=== PATIENT | male | born 1990 | race Two or more races ===

== ENCOUNTER 2023-12-27 03:56 | Inpatient (IN) | payer MEDICAID ==
[~2023-12-27] VITALS: Ht 172.7 cm; Wt 188.2 kg
[2023-12-27] VITALS (20 sets, daily range): BP systolic 123–147; BP diastolic 70–89; PULSE 89–112; RESP 20–30; TEMP 97.9–98.3; O2SAT 98
[2023-12-27 04:25] LABS: BASOPHILS % 0.4 % (0.0-2.0); DIFFERENTIAL COMMENT 0; EOSINOPHILS % 1.3 % (0.0-5.0); HEMATOCRIT. 43.8 % (42.0-52.0); HEMOGLOBIN. 13.6 g/dL (14.0-18.0); LYMPHOCYTES % 18.7 % (20.0-50.0); MEAN CORPUSCULAR VOLUME 83.9 fL (80.0-94.0); MEAN PLATELET VOLUME 7.5 fl (7.4-10.4); MONOCYTES % 6.3 % (2.0-8.0); NEUTROPHILS % 73.3 % (40.0-76.0); PLATELET 267 x1000/uL (130-400); RED BLOOD CELL COUNT 5.22 mill/uL (4.7-6.1); RED CELL DISTRIBUTION WIDTH 19.3 % (11.6-14.6); WHITE BLOOD COUNT 9.2 x1000/uL (4.5-11.0)
[2023-12-27 04:43] LABS: CARBON DIOXIDE 37 mEq/L (21-32); CHLORIDE 100 mEq/L (98-107); POTASSIUM 4.4 mEq/L (3.5-5.1); SODIUM 140 mEq/L (136-145)
[2023-12-27 04:44] LABS: CALCIUM 9.6 mg/dL (8.7-10.4)
[2023-12-27 04:48] LABS: CREATININE 1.2 mg/dL (0.6-1.3); GLUCOSE 145 mg/dL (70-105)
[2023-12-27 04:49] LABS: TROPONIN I HIGH SENSITIVITY 15 ng/L (3.0-53); UREA NITROGEN BLOOD 17 mg/dL (9-23)
[2023-12-27 04:50] LABS: ALANINE AMINOTRANSFERASE 21 IU/L (10-49); ALBUMIN 4.1 g/dL (3.2-4.8); ASPARTATE AMINOTRANSFERASE 16 IU/L (<34)
[2023-12-27 04:51] LABS: BILIRUBIN TOTAL 0.6 mg/dL (0.1-1.0); PROTEIN TOTAL 7.6 g/dL (6.0-8.3)
[2023-12-27 05:02] LABS: ETHANOL BLOOD < 10 mg/dL (<10)
[2023-12-27 05:10] LABS: BG BASE EXCESS 7.3 mmol/L (-2.0-2.0); BG CARBOXYHEMOGLOBIN 0.9 % (0.5-1.5); BG DEOXYHEMOGLOBIN 22.6 % (0.0-5.0); BG METHEMOGLOBIN 0.3 % (0.0-1.5); BG OXYGEN SATURATION 77.1 % (92.0-98.5); BG OXYHEMOGLOBIN 76.2 % (94.0-97.0); BG PCO2 70.4 mmHg (35.0-45.0); BG PH 7.326 (7.350-7.450); BG PO2 44.6 mmHg (75.0-100.0); BG SAMPLE SITE RIGHT RADIAL; BG TOTAL HEMOGLOBIN 14.1 g/dL (12.0-18.0); BG VENT MODE ROOM AIR
[2023-12-27] MEDS: ALBUTEROL (0.083%) 2.5MG/3ML NEB HHN STA (05:23)
[2023-12-27] MEDS: IPRATROPIUM BROMIDE (0.02%) 0.5MG/2.5ML NEB HHN STA (05:23)
[2023-12-27] MEDS: PREDNISONE 20MG TABLET PO STA (05:35)
[2023-12-27] MEDS: MAGNESIUM 2 G PREMIX 50 ML IV STA (05:36)
[2023-12-27 06:25] LABS: CHLORIDE 100 mEq/L (98-107); POTASSIUM 4.4 mEq/L (3.5-5.1); SODIUM 140 mEq/L (136-145)
[2023-12-27 06:26] LABS: CALCIUM 9.7 mg/dL (8.7-10.4); CARBON DIOXIDE 36 mEq/L (21-32)
[2023-12-27 06:31] LABS: CREATININE 1.1 mg/dL (0.6-1.3); GLUCOSE 135 mg/dL (70-105); TROPONIN I HIGH SENSITIVITY 14 ng/L (3.0-53); UREA NITROGEN BLOOD 16 mg/dL (9-23)
[2023-12-27 06:33] LABS: ALANINE AMINOTRANSFERASE 20 IU/L (10-49); ALBUMIN 4.1 g/dL (3.2-4.8); ASPARTATE AMINOTRANSFERASE 15 IU/L (<34); BILIRUBIN TOTAL 0.6 mg/dL (0.1-1.0); PROTEIN TOTAL 7.5 g/dL (6.0-8.3)
[2023-12-27] MEDS: ROCURONIUM BROMIDE 10MG/ML VIAL 5ML IV ONE (08:57)
[2023-12-27] MEDS: PROPOFOL 10MG/ML 100ML 100 ML IV SCH (08:57)
[2023-12-27] MEDS: ETOMIDATE 2MG/ML 10ML VIAL IV ONE (08:57)
[2023-12-27] MEDS ORDERED: IPRATROPIUM/ALBUTEROL 0.5-3(2.5)MG/3ML NEB HHN PRN ×2 (09:15→14:15)
[2023-12-27] MEDS: SODIUM CHLORIDE 0.9% 1,000 ML IV SCH (10:00)
[2023-12-27 11:24] LABS: CLARITY URINE CLEAR (CLEAR); COLOR URINE YELLOW (YELLOW); GLUCOSE URINE 3+ (NEGATIVE); KETONES URINE NEGATIVE (NEGATIVE); LEUKOCYTE ESTERASE URINE NEGATIVE (NEGATIVE); NITRITE URINE NEGATIVE (NEGATIVE); OCCULT BLOOD URINE 1+ (NEGATIVE); PH URINE 5.5 (4.5-8.0); PROTEIN URINE 3+ (NEGATIVE); SPECIFIC GRAVITY URINE 1.031 (1.005-1.030); UROBILINOGEN URINE 0.2 E.U./dL (0.2-1.0)
[2023-12-27 11:38] LABS: *AMPHETAMINES SCREEN URINE NEGATIVE (NEGATIVE); *BARBITURATES SCREEN URINE NEGATIVE (NEGATIVE); *BENZODIAZEPINES SCREEN URINE NEGATIVE (NEGATIVE); *COCAINE SCREEN URINE NEGATIVE (NEGATIVE); BACTERIA URINE NONE SEEN; HYALINE CASTS URINE 0-5 /lpf; RBC URINE 0-2 /hpf (0-2); SQUAMOUS EPITHELIAL CELL URINE RARE /lpf (RARE/1+); WBC URINE 0-2 /hpf (0-2); YEAST URINE NONE SEEN
[2023-12-27 11:39] LABS: CANNABINOID URINE SCREEN NEGATIVE (NEGATIVE); ECSTASY MDMA SCREEN URINE NEGATIVE (NEGATIVE); METHADONE URINE SCREEN NEGATIVE (NEGATIVE); OPIATES URINE SCREEN NEGATIVE (NEGATIVE); PHENCYCLIDINE URINE SCREEN NEGATIVE (NEGATIVE)
[2023-12-27 12:04] LABS: BG BASE EXCESS 5.9 mmol/L (-2.0-2.0); BG CARBOXYHEMOGLOBIN 0.7 % (0.5-1.5); BG FRACTION INSPIRED OXYGEN 20; BG HCO3 ACT 36.3 mmol/L (22.0-26.0); BG METHEMOGLOBIN 0.3 % (0.0-1.5); BG OXYGEN SATURATION 91.9 % (92.0-98.5); BG PCO2 83.6 mmHg (35.0-45.0); BG PH 7.256 (7.350-7.450); BG PO2 72.4 mmHg (75.0-100.0); BG SAMPLE SITE RIGHT RADIAL; BG TOTAL HEMOGLOBIN 14.5 g/dL (12.0-18.0); BG VENT MODE VENT - AC
[2023-12-27] MEDS: PROPOFOL 10MG/ML 100ML 100 ML IV PRN (12:53)
[2023-12-27] MEDS: FENTANYL CITRATE/PF 2,500 MCG in SODIUM CHLORIDE 0.9% 200 ML IV PRN (12:54)
[2023-12-27] MEDS: METHYLPREDNISOLONE SOD SUCC 40MG/ML (ACT-O-VIAL) IV SCH (15:10)
[2023-12-27 17:24] LABS: BG BASE EXCESS 5.7 mmol/L (-2.0-2.0); BG CARBOXYHEMOGLOBIN 0.2 % (0.5-1.5); BG DEOXYHEMOGLOBIN 8.7 % (0.0-5.0); BG FRACTION INSPIRED OXYGEN 90; BG HCO3 ACT 32.1 mmol/L (22.0-26.0); BG OXYGEN SATURATION 91.3 % (92.0-98.5); BG OXYHEMOGLOBIN 91.1 % (94.0-97.0); BG PCO2 53.8 mmHg (35.0-45.0); BG PH 7.393 (7.350-7.450); BG PO2 61.3 mmHg (75.0-100.0); BG SAMPLE SITE RIGHT RADIAL; BG TOTAL HEMOGLOBIN 14.2 g/dL (12.0-18.0); BG VENT MODE VENT - AC
[2023-12-27] MEDS: ENOXAPARIN 40MG/0.4ML SYR SUBCUT SCH (17:27)
[2023-12-27] MEDS: IPRATROPIUM/ALBUTEROL 0.5-3(2.5)MG/3ML NEB HHN SCH (21:06)
[2023-12-27] MEDS: FAMOTIDINE 20MG/2ML VIAL IV SCH (21:23)
[2023-12-28] VITALS (37 sets, daily range): BP systolic 128–142; BP diastolic 69–90; PULSE 68–108; RESP 20–28; TEMP 98.4–98.8
[2023-12-28 05:37] LABS: BASOPHILS % 0.1 % (0.0-2.0); HEMATOCRIT. 42.4 % (42.0-52.0); HEMOGLOBIN. 13.2 g/dL (14.0-18.0); LYMPHOCYTES % 9.2 % (20.0-50.0); MEAN CORPUSCULAR HEMOGLOBIN 25.7 pg (28.0-32.0); MEAN CORPUSCULAR VOLUME 82.7 fL (80.0-94.0); MEAN PLATELET VOLUME 7.5 fl (7.4-10.4); MONOCYTES % 3.7 % (2.0-8.0); PLATELET 308 x1000/uL (130-400); RED BLOOD CELL COUNT 5.13 mill/uL (4.7-6.1); RED CELL DISTRIBUTION WIDTH 19.4 % (11.6-14.6); WHITE BLOOD COUNT 8.3 x1000/uL (4.5-11.0)
[2023-12-28 06:10] LABS: CARBON DIOXIDE 31 mEq/L (21-32); CHLORIDE 104 mEq/L (98-107); POTASSIUM 4.4 mEq/L (3.5-5.1); SODIUM 140 mEq/L (136-145)
[2023-12-28 06:11] LABS: CALCIUM 9.9 mg/dL (8.7-10.4)
[2023-12-28 06:16] LABS: CREATININE 0.9 mg/dL (0.6-1.3); GLUCOSE 151 mg/dL (70-105); UREA NITROGEN BLOOD 14 mg/dL (9-23)
[2023-12-28 06:17] LABS: ALANINE AMINOTRANSFERASE 15 IU/L (10-49); ALBUMIN 3.9 g/dL (3.2-4.8)
[2023-12-28 06:18] LABS: ASPARTATE AMINOTRANSFERASE 12 IU/L (<34); BILIRUBIN TOTAL 0.6 mg/dL (0.1-1.0); PROTEIN TOTAL 7.3 g/dL (6.0-8.3)
[2023-12-28] MEDS: LIDOCAINE HCL 1% 10 MG/ML 10ML VIAL ONE (07:53)
[2023-12-28 10:10] LABS: BG BASE EXCESS 6.3 mmol/L (-2.0-2.0); BG CARBOXYHEMOGLOBIN 0.5 % (0.5-1.5); BG DEOXYHEMOGLOBIN 5.5 % (0.0-5.0); BG FRACTION INSPIRED OXYGEN 90; BG HCO3 ACT 32.6 mmol/L (22.0-26.0); BG METHEMOGLOBIN 0.4 % (0.0-1.5); BG OXYGEN SATURATION 94.5 % (92.0-98.5); BG OXYHEMOGLOBIN 93.6 % (94.0-97.0); BG PCO2 53.8 mmHg (35.0-45.0); BG PO2 74.9 mmHg (75.0-100.0); BG SAMPLE SITE RIGHT RADIAL; BG TOTAL HEMOGLOBIN 13.9 g/dL (12.0-18.0); BG VENT MODE VENT - AC
[2023-12-28] MEDS ORDERED: FURO40TA5 MT (10:23)
[2023-12-28] MEDS ORDERED: LOSA50TA41 MT (10:23)
[2023-12-28] MEDS ORDERED: ATOR20TA65 MT (10:23)
[2023-12-28] MEDS ORDERED: SPIR25TA6 MT (10:23)
[2023-12-28] MEDS ORDERED: METF-415 MT (10:23)
[2023-12-28] MEDS: PROPOFOL 10MG/ML 100ML 100 ML IV PRN (11:48)
[2023-12-29] VITALS (45 sets, daily range): BP systolic 122–147; BP diastolic 76–107; PULSE 54–90; RESP 20–25; TEMP 98–98.9
[2023-12-29 09:25] LABS: BG BASE EXCESS 2.5 mmol/L (-2.0-2.0); BG CARBOXYHEMOGLOBIN 0.7 % (0.5-1.5); BG DEOXYHEMOGLOBIN 7.4 % (0.0-5.0); BG FRACTION INSPIRED OXYGEN 100; BG HCO3 ACT 28.8 mmol/L (22.0-26.0); BG METHEMOGLOBIN 0.3 % (0.0-1.5); BG OXYGEN SATURATION 92.5 % (92.0-98.5); BG OXYHEMOGLOBIN 91.6 % (94.0-97.0); BG PCO2 50.9 mmHg (35.0-45.0); BG PO2 70.6 mmHg (75.0-100.0); BG SAMPLE SITE RIGHT RADIAL; BG TOTAL HEMOGLOBIN 13.9 g/dL (12.0-18.0); BG TOTAL RESPIRATORY RATE 22 b/min; BG VENT MODE VENT - AC
[2023-12-29] MEDS ORDERED: PANTOPRAZOLE SODIUM 40 MG/VIAL IV SCH (10:15)
[2023-12-29] MEDS: PROPOFOL 10MG/ML 100ML 100 ML IV PRN (11:55)
[2023-12-29 17:19] LABS: BG BASE EXCESS 3.8 mmol/L (-2.0-2.0); BG CARBOXYHEMOGLOBIN 0.3 % (0.5-1.5); BG FRACTION INSPIRED OXYGEN 100; BG HCO3 ACT 29.4 mmol/L (22.0-26.0); BG METHEMOGLOBIN 0.2 % (0.0-1.5); BG OXYHEMOGLOBIN 90.5 % (94.0-97.0); BG PH 7.405 (7.350-7.450); BG PO2 64.2 mmHg (75.0-100.0); BG SAMPLE SITE RIGHT RADIAL; BG TOTAL HEMOGLOBIN 14.1 g/dL (12.0-18.0); BG VENT MODE VENT - AC
[2023-12-30] VITALS (89 sets, daily range): BP systolic 102–169; BP diastolic 27–142; PULSE 51–99; RESP 16–31; TEMP 98.2–99.2
[2023-12-30 06:14] LABS: CARBON DIOXIDE 27 mEq/L (21-32); CHLORIDE 105 mEq/L (98-107); POTASSIUM 4.2 mEq/L (3.5-5.1); SODIUM 141 mEq/L (136-145)
[2023-12-30 06:15] LABS: CALCIUM 9.7 mg/dL (8.7-10.4)
[2023-12-30 06:19] LABS: BASOPHILS % 0.1 % (0.0-2.0); DIFFERENTIAL COMMENT 0; HEMATOCRIT. 43.3 % (42.0-52.0); HEMOGLOBIN. 13.4 g/dL (14.0-18.0); LYMPHOCYTES % 9.9 % (20.0-50.0); MEAN CORPUSCULAR HEMOGLOBIN 25.7 pg (28.0-32.0); MEAN CORPUSCULAR VOLUME 82.9 fL (80.0-94.0); MEAN PLATELET VOLUME 7.6 fl (7.4-10.4); MONOCYTES % 9.3 % (2.0-8.0); NEUTROPHILS % 80.7 % (40.0-76.0); PLATELET 304 x1000/uL (130-400); RED BLOOD CELL COUNT 5.22 mill/uL (4.7-6.1); RED CELL DISTRIBUTION WIDTH 19.6 % (11.6-14.6); WHITE BLOOD COUNT 8.7 x1000/uL (4.5-11.0)
[2023-12-30 06:20] LABS: CREATININE 0.9 mg/dL (0.6-1.3); GLUCOSE 138 mg/dL (70-105); UREA NITROGEN BLOOD 20 mg/dL (9-23)
[2023-12-30 08:13] LABS: BG CARBOXYHEMOGLOBIN 0.1 % (0.5-1.5); BG DEOXYHEMOGLOBIN 11.7 % (0.0-5.0); BG FRACTION INSPIRED OXYGEN 100; BG HCO3 ACT 27.8 mmol/L (22.0-26.0); BG METHEMOGLOBIN 0.2 % (0.0-1.5); BG OXYGEN SATURATION 88.3 % (92.0-98.5); BG PCO2 47.5 mmHg (35.0-45.0); BG PH 7.385 (7.350-7.450); BG PO2 58.6 mmHg (75.0-100.0); BG SAMPLE SITE RIGHT RADIAL; BG TOTAL HEMOGLOBIN 14.9 g/dL (12.0-18.0); BG TOTAL RESPIRATORY RATE 31 b/min; BG VENT MODE VENT - AC
[2023-12-30] MEDS ORDERED: DEXTROSE 50% WATER 50ML SYRINGE IV PRN (11:15)
[2023-12-30] MEDS: BLOOD SUGAR DIAGNOSTIC STRIP TEST SCH (12:01)
[2023-12-30] MEDS: INSULIN LISPRO 100 UNITS/ML SUBCUT SCH ×2 (13:00→21:43)
[2023-12-30] MEDS: CLONIDINE 0.1MG TABLET PO PRN (13:57)
[2023-12-30] MEDS: PROPOFOL 10MG/ML 100ML 100 ML IV PRN (19:26)
[2023-12-30] MEDS: METHYLPREDNISOLONE SOD SUCC 125MG/2ML (ACT-O-VIAL) IV SCH (21:43)
[2023-12-31] VITALS (90 sets, daily range): BP systolic 54–165; BP diastolic 23–139; PULSE 57–125; RESP 10–30; TEMP 97.5–99.1
[2023-12-31 09:06] LABS: BG BASE EXCESS 2.7 mmol/L (-2.0-2.0); BG CARBOXYHEMOGLOBIN 0.1 % (0.5-1.5); BG DEOXYHEMOGLOBIN 5.5 % (0.0-5.0); BG FRACTION INSPIRED OXYGEN 100; BG HCO3 ACT 27.7 mmol/L (22.0-26.0); BG METHEMOGLOBIN 0.3 % (0.0-1.5); BG OXYGEN SATURATION 94.5 % (92.0-98.5); BG OXYHEMOGLOBIN 94.1 % (94.0-97.0); BG PCO2 43.9 mmHg (35.0-45.0); BG PH 7.418 (7.350-7.450); BG PO2 73.9 mmHg (75.0-100.0); BG SAMPLE SITE RIGHT RADIAL; BG TOTAL HEMOGLOBIN 13.9 g/dL (12.0-18.0); BG VENT MODE VENT - AC
[2023-12-31] MEDS: KETOROLAC 30MG/ML VIAL IV PRN (12:43)
[2023-12-31] MEDS: PIPERACILLIN/TAZO 3.375G/50ML 50 ML IV SCH (12:43)
[2023-12-31] MEDS: FUROSEMIDE 40MG/4ML VIAL IVP NR (12:44)
[2023-12-31] MEDS: DIPHENHYDRAMINE 50MG/ML VIAL IV PRN (22:23)
[2024-01-01] VITALS (83 sets, daily range): BP systolic 90–145; BP diastolic 50–110; PULSE 18–106; RESP 18–36; TEMP 97.5–100.1
[2024-01-01] MEDS: ACETAMINOPHEN 325MG TABLET PO PRN (06:18)
[2024-01-01 06:36] LABS: HEMATOCRIT. 40.5 % (42.0-52.0); HEMOGLOBIN. 12.9 g/dL (14.0-18.0); MEAN CORPUSCULAR HEMOGLOBIN 26.1 pg (28.0-32.0); MEAN CORPUSCULAR HGB CONC 31.9 g/dL (31.0-37.0); MEAN PLATELET VOLUME 7.2 fl (7.4-10.4); PLATELET 256 x1000/uL (130-400); RED BLOOD CELL COUNT 4.94 mill/uL (4.7-6.1); RED CELL DISTRIBUTION WIDTH 19.2 % (11.6-14.6); WHITE BLOOD COUNT 14.7 x1000/uL (4.5-11.0)
[2024-01-01 06:37] LABS: CALCIUM 9.4 mg/dL (8.7-10.4); CARBON DIOXIDE 29 mEq/L (21-32); CHLORIDE 107 mEq/L (98-107); DIFFERENTIAL COMMENT 1; POTASSIUM 3.7 mEq/L (3.5-5.1); SODIUM 142 mEq/L (136-145)
[2024-01-01 06:42] LABS: GLUCOSE 143 mg/dL (70-105)
[2024-01-01 06:43] LABS: UREA NITROGEN BLOOD 23 mg/dL (9-23)
[2024-01-01 07:55] LABS: BG BASE EXCESS 4.1 mmol/L (-2.0-2.0); BG CARBOXYHEMOGLOBIN 0.5 % (0.5-1.5); BG DEOXYHEMOGLOBIN 5.4 % (0.0-5.0); BG FRACTION INSPIRED OXYGEN 90; BG HCO3 ACT 29.1 mmol/L (22.0-26.0); BG METHEMOGLOBIN 0.3 % (0.0-1.5); BG OXYGEN SATURATION 94.6 % (92.0-98.5); BG OXYHEMOGLOBIN 93.8 % (94.0-97.0); BG PH 7.429 (7.350-7.450); BG PO2 75.1 mmHg (75.0-100.0); BG SAMPLE SITE RIGHT RADIAL; BG TOTAL HEMOGLOBIN 13.8 g/dL (12.0-18.0); BG VENT MODE VENT - AC
[2024-01-01] MEDS: FUROSEMIDE 40MG/4ML VIAL IVP SCH (08:56)
[2024-01-01 09:41] LABS: ANISOCYTOSIS 2+; PLATELET ESTIMATE NORMAL
[2024-01-01 11:28] LABS: BG BASE EXCESS 4.4 mmol/L (-2.0-2.0); BG CARBOXYHEMOGLOBIN 0.4 % (0.5-1.5); BG DEOXYHEMOGLOBIN 9.5 % (0.0-5.0); BG FRACTION INSPIRED OXYGEN 90; BG METHEMOGLOBIN 0.3 % (0.0-1.5); BG OXYGEN SATURATION 90.4 % (92.0-98.5); BG OXYHEMOGLOBIN 89.8 % (94.0-97.0); BG PCO2 48.6 mmHg (35.0-45.0); BG PH 7.409 (7.350-7.450); BG PO2 58.6 mmHg (75.0-100.0); BG SAMPLE SITE LEFT RADIAL; BG TOTAL HEMOGLOBIN 14.5 g/dL (12.0-18.0); BG VENT MODE VENT - AC
[2024-01-01] MEDS ORDERED: FENTANYL 2500MCG/250ML PMX 250 ML IV ONE (11:30)
[2024-01-01] MEDS ORDERED: FENTANYL CITRATE 2,500 MCG in SODIUM CHLORIDE 0.9% 200 ML IV PRN (11:45)
[2024-01-01] MEDS: FENTANYL 2500MCG/250ML PMX 250 ML IV PRN (11:50)
[2024-01-01 17:41] LABS: BG BASE EXCESS 5.4 mmol/L (-2.0-2.0); BG CARBOXYHEMOGLOBIN 0.2 % (0.5-1.5); BG FRACTION INSPIRED OXYGEN 90; BG HCO3 ACT 30.2 mmol/L (22.0-26.0); BG METHEMOGLOBIN 0.2 % (0.0-1.5); BG OXYHEMOGLOBIN 94.6 % (94.0-97.0); BG PCO2 44.9 mmHg (35.0-45.0); BG PH 7.446 (7.350-7.450); BG PO2 75.6 mmHg (75.0-100.0); BG SAMPLE SITE RIGHT RADIAL; BG TOTAL HEMOGLOBIN 13.9 g/dL (12.0-18.0); BG VENT MODE VENT - AC
[2024-01-01] MEDS ORDERED: IPRATROPIUM/ALBUTEROL 0.5-3(2.5)MG/3ML NEB HHN PRN (18:45)
[2024-01-01] MEDS: QUETIAPINE FUMARATE 25MG TABLET PO SCH (19:14)
[2024-01-01] MEDS: AZITHROMYCIN 500MG/250ML 250 ML IV SCH (20:00)
[2024-01-01] MEDS: IPRATROPIUM/ALBUTEROL 0.5-3(2.5)MG/3ML NEB HHN SCH (20:33)
[2024-01-01] MEDS: METHYLPREDNISOLONE SOD SUCC 40MG/ML (ACT-O-VIAL) IV SCH (22:35)
[2024-01-02] VITALS (65 sets, daily range): BP systolic 100–164; BP diastolic 70–146; PULSE 46–96; RESP 17–27; TEMP 98.2–99.1
[2024-01-02 06:26] LABS: DIFFERENTIAL COMMENT 1; HEMATOCRIT. 40.7 % (42.0-52.0); HEMOGLOBIN. 12.6 g/dL (14.0-18.0); MEAN CORPUSCULAR HEMOGLOBIN 25.5 pg (28.0-32.0); MEAN CORPUSCULAR VOLUME 82.1 fL (80.0-94.0); MEAN PLATELET VOLUME 7.4 fl (7.4-10.4); PLATELET 299 x1000/uL (130-400); RED BLOOD CELL COUNT 4.96 mill/uL (4.7-6.1); RED CELL DISTRIBUTION WIDTH 19.5 % (11.6-14.6); WHITE BLOOD COUNT 12.4 x1000/uL (4.5-11.0)
[2024-01-02 06:40] LABS: CHLORIDE 108 mEq/L (98-107); POTASSIUM 3.9 mEq/L (3.5-5.1); SODIUM 143 mEq/L (136-145)
[2024-01-02 06:41] LABS: CARBON DIOXIDE 28 mEq/L (21-32)
[2024-01-02 06:46] LABS: CREATININE 0.8 mg/dL (0.6-1.3); GLUCOSE 167 mg/dL (70-105); UREA NITROGEN BLOOD 23 mg/dL (9-23)
[2024-01-02 06:56] LABS: CALCIUM 9.6 mg/dL (8.7-10.4)
[2024-01-02 08:29] LABS: BG CARBOXYHEMOGLOBIN 0.5 % (0.5-1.5); BG DEOXYHEMOGLOBIN 6.8 % (0.0-5.0); BG FRACTION INSPIRED OXYGEN 80; BG HCO3 ACT 29.6 mmol/L (22.0-26.0); BG METHEMOGLOBIN 0.2 % (0.0-1.5); BG OXYGEN SATURATION 93.2 % (92.0-98.5); BG OXYHEMOGLOBIN 92.5 % (94.0-97.0); BG PCO2 43.4 mmHg (35.0-45.0); BG PH 7.451 (7.350-7.450); BG PO2 66.8 mmHg (75.0-100.0); BG SAMPLE SITE RIGHT RADIAL; BG TOTAL HEMOGLOBIN 13.2 g/dL (12.0-18.0); BG VENT MODE VENT - AC
[2024-01-02 12:02] LABS: PLATELET ESTIMATE NORMAL
[2024-01-02 12:03] LABS: ANISOCYTOSIS 1+
[2024-01-02 14:23] LABS: BG BASE EXCESS 6.7 mmol/L (-2.0-2.0); BG CARBOXYHEMOGLOBIN 0.3 % (0.5-1.5); BG DEOXYHEMOGLOBIN 8.7 % (0.0-5.0); BG FRACTION INSPIRED OXYGEN 70; BG METHEMOGLOBIN 0.3 % (0.0-1.5); BG OXYGEN SATURATION 91.2 % (92.0-98.5); BG OXYHEMOGLOBIN 90.7 % (94.0-97.0); BG PCO2 43.2 mmHg (35.0-45.0); BG PH 7.474 (7.350-7.450); BG PO2 61.3 mmHg (75.0-100.0); BG SAMPLE SITE RIGHT RADIAL; BG TOTAL HEMOGLOBIN 13.7 g/dL (12.0-18.0); BG VENT MODE VENT - AC
[2024-01-03] VITALS (64 sets, daily range): BP systolic 123–180; BP diastolic 55–152; PULSE 37–92; RESP 20–27; TEMP 98–98.2
[2024-01-03 05:38] LABS: HEMATOCRIT 37.5 % (42.0-52.0); HEMOGLOBIN 11.6 g/dL (14.0-18.0); MEAN CORPUSCULAR HEMOGLOBIN 25.4 pg (28.0-32.0); MEAN CORPUSCULAR HGB CONC 30.9 g/dL (31.0-37.0); PLATELET 315 x1000/uL (130-400); RED BLOOD CELL COUNT 4.57 mill/uL (4.7-6.1); RED CELL DISTRIBUTION WIDTH 19.5 % (11.6-14.6); WHITE BLOOD COUNT 10.5 x1000/uL (4.5-11.0)
[2024-01-03 05:49] LABS: CHLORIDE 111 mEq/L (98-107); POTASSIUM 3.5 mEq/L (3.5-5.1); SODIUM 146 mEq/L (136-145)
[2024-01-03 05:50] LABS: CALCIUM 8.4 mg/dL (8.7-10.4); CARBON DIOXIDE 28 mEq/L (21-32)
[2024-01-03 05:55] LABS: CREATININE 0.9 mg/dL (0.6-1.3); GLUCOSE 180 mg/dL (70-105); UREA NITROGEN BLOOD 30 mg/dL (9-23)
[2024-01-03 05:56] LABS: ALANINE AMINOTRANSFERASE 35 IU/L (10-49); ASPARTATE AMINOTRANSFERASE 16 IU/L (<34)
[2024-01-03 05:57] LABS: ALBUMIN 3.2 g/dL (3.2-4.8); BILIRUBIN TOTAL 0.8 mg/dL (0.1-1.0)
[2024-01-03] MEDS: BLOOD SUGAR DIAGNOSTIC STRIP TEST SCH (12:00)
[2024-01-03] MEDS: INSULIN LISPRO 100 UNITS/ML SUBCUT SCH (12:12)
[2024-01-03] MEDS: ACETAMINOPHEN 650MG/20.3ML UDC PO PRN (15:11)
[2024-01-03] MEDS: METHYLPREDNISOLONE SOD SUCC 125MG/2ML (ACT-O-VIAL) IV SCH (15:11)
[2024-01-04] VITALS (79 sets, daily range): BP systolic 121–179; BP diastolic 75–123; PULSE 41–85; RESP 16–29; TEMP 97.8–98.5
[2024-01-04 05:58] LABS: CARBON DIOXIDE 27 mEq/L (21-32); CHLORIDE 107 mEq/L (98-107); POTASSIUM 3.8 mEq/L (3.5-5.1); SODIUM 144 mEq/L (136-145)
[2024-01-04 06:02] LABS: HEMATOCRIT. 44.9 % (42.0-52.0); HEMOGLOBIN. 14.1 g/dL (14.0-18.0); MEAN CORPUSCULAR HEMOGLOBIN 25.7 pg (28.0-32.0); MEAN CORPUSCULAR HGB CONC 31.4 g/dL (31.0-37.0); MEAN CORPUSCULAR VOLUME 81.9 fL (80.0-94.0); MEAN PLATELET VOLUME 7.7 fl (7.4-10.4); PLATELET 359 x1000/uL (130-400); RED BLOOD CELL COUNT 5.48 mill/uL (4.7-6.1); RED CELL DISTRIBUTION WIDTH 19.5 % (11.6-14.6); WHITE BLOOD COUNT 10.7 x1000/uL (4.5-11.0)
[2024-01-04 06:04] LABS: GLUCOSE 166 mg/dL (70-105); UREA NITROGEN BLOOD 30 mg/dL (9-23)
[2024-01-04 06:54] LABS: DIFFERENTIAL COMMENT 1
[2024-01-04 08:35] LABS: BG BASE EXCESS 2.1 mmol/L (-2.0-2.0); BG CARBOXYHEMOGLOBIN 0.5 % (0.5-1.5); BG DEOXYHEMOGLOBIN 5.9 % (0.0-5.0); BG FRACTION INSPIRED OXYGEN 55; BG HCO3 ACT 25.9 mmol/L (22.0-26.0); BG METHEMOGLOBIN 0.3 % (0.0-1.5); BG OXYGEN SATURATION 94.1 % (92.0-98.5); BG OXYHEMOGLOBIN 93.3 % (94.0-97.0); BG PCO2 37.8 mmHg (35.0-45.0); BG PH 7.454 (7.350-7.450); BG PO2 70.6 mmHg (75.0-100.0); BG SAMPLE SITE LEFT RADIAL; BG TOTAL HEMOGLOBIN 14.2 g/dL (12.0-18.0)
[2024-01-04 10:23] LABS: ANISOCYTOSIS 1+; MICROCYTOSIS 1+; PLATELET ESTIMATE NORMAL
[2024-01-05] VITALS (62 sets, daily range): BP systolic 133–160; BP diastolic 77–140; PULSE 41–84; RESP 11–32; TEMP 97.2–99; O2SAT 98–100
[2024-01-05 06:15] LABS: HEMATOCRIT. 42.5 % (42.0-52.0); HEMOGLOBIN. 13.6 g/dL (14.0-18.0); LYMPHOCYTES % 8.2 % (20.0-50.0); MEAN CORPUSCULAR HEMOGLOBIN 25.6 pg (28.0-32.0); MEAN CORPUSCULAR VOLUME 80.1 fL (80.0-94.0); MEAN PLATELET VOLUME 7.9 fl (7.4-10.4); MONOCYTES % 9.1 % (2.0-8.0); NEUTROPHILS % 82.7 % (40.0-76.0); PLATELET 340 x1000/uL (130-400); RED BLOOD CELL COUNT 5.31 mill/uL (4.7-6.1); RED CELL DISTRIBUTION WIDTH 19.2 % (11.6-14.6); WHITE BLOOD COUNT 8.6 x1000/uL (4.5-11.0)
[2024-01-05 06:22] LABS: CHLORIDE 106 mEq/L (98-107); SODIUM 142 mEq/L (136-145)
[2024-01-05 06:23] LABS: CARBON DIOXIDE 27 mEq/L (21-32)
[2024-01-05 06:28] LABS: CREATININE 0.6 mg/dL (0.6-1.3); GLUCOSE 221 mg/dL (70-105)
[2024-01-05 06:29] LABS: UREA NITROGEN BLOOD 23 mg/dL (9-23)
[2024-01-05 07:14] LABS: CALCIUM 9.4 mg/dL (8.7-10.4)
[2024-01-05 10:04] LABS: BG BASE EXCESS 5.8 mmol/L (-2.0-2.0); BG CARBOXYHEMOGLOBIN 0.9 % (0.5-1.5); BG DEOXYHEMOGLOBIN 5.7 % (0.0-5.0); BG FRACTION INSPIRED OXYGEN 50; BG HCO3 ACT 29.5 mmol/L (22.0-26.0); BG METHEMOGLOBIN 0.3 % (0.0-1.5); BG OXYGEN SATURATION 94.2 % (92.0-98.5); BG OXYHEMOGLOBIN 93.1 % (94.0-97.0); BG PCO2 39.7 mmHg (35.0-45.0); BG PH 7.489 (7.350-7.450); BG PO2 69.9 mmHg (75.0-100.0); BG SAMPLE SITE RIGHT RADIAL; BG TOTAL HEMOGLOBIN 14.1 g/dL (12.0-18.0); BG VENT MODE VENT - AC
[2024-01-05 15:55] LABS: BG BASE EXCESS 4.3 mmol/L (-2.0-2.0); BG CARBOXYHEMOGLOBIN 0.2 % (0.5-1.5); BG DEOXYHEMOGLOBIN 5.5 % (0.0-5.0); BG FRACTION INSPIRED OXYGEN 50; BG HCO3 ACT 27.7 mmol/L (22.0-26.0); BG METHEMOGLOBIN 0.2 % (0.0-1.5); BG OXYGEN SATURATION 94.5 % (92.0-98.5); BG OXYHEMOGLOBIN 94.1 % (94.0-97.0); BG PCO2 37.4 mmHg (35.0-45.0); BG PH 7.487 (7.350-7.450); BG SAMPLE SITE RIGHT RADIAL; BG TOTAL HEMOGLOBIN 14.7 g/dL (12.0-18.0); BG VENT MODE VENT - CPAP
[2024-01-05] MEDS ORDERED: RACEPINEPHRINE 2.25% 0.5ML NEB VIAL HHN PRN (16:15)
[2024-01-05] MEDS: METHYLPREDNISOLONE SOD SUCC 125MG/2ML (ACT-O-VIAL) IV SCH (21:33)
[2024-01-06] VITALS (70 sets, daily range): BP systolic 122–155; BP diastolic 73–116; PULSE 42–86; RESP 16–31; TEMP 97.7–98.9; O2SAT 94–97
[2024-01-06] MEDS: ONDANSETRON HCL 4MG/2ML INJ IV PRN (04:49)
[2024-01-06 09:27] LABS: BG BASE EXCESS 2.6 mmol/L (-2.0-2.0); BG CARBOXYHEMOGLOBIN 0.2 % (0.5-1.5); BG DEOXYHEMOGLOBIN 3.8 % (0.0-5.0); BG FRACTION INSPIRED OXYGEN 40; BG HCO3 ACT 28.2 mmol/L (22.0-26.0); BG METHEMOGLOBIN 0.3 % (0.0-1.5); BG OXYGEN SATURATION 96.2 % (92.0-98.5); BG OXYHEMOGLOBIN 95.7 % (94.0-97.0); BG PCO2 47.2 mmHg (35.0-45.0); BG PH 7.394 (7.350-7.450); BG PO2 90.3 mmHg (75.0-100.0); BG SAMPLE SITE RIGHT RADIAL; BG VENT MODE COOL AEROSOL
[2024-01-07] VITALS: BP 129/83; PULSE 76; RESP 20; TEMP 97.7
[2024-01-07 04:00] VITALS: BP 124/80; PULSE 67; RESP 22; TEMP 98.4
[2024-01-07 07:04] LABS: CARBON DIOXIDE 28 mEq/L (21-32); CHLORIDE 101 mEq/L (98-107); POTASSIUM 4.4 mEq/L (3.5-5.1); SODIUM 138 mEq/L (136-145)
[2024-01-07 07:05] LABS: CALCIUM 9.6 mg/dL (8.7-10.4)
[2024-01-07 07:10] LABS: BASOPHILS % 0.1 % (0.0-2.0); CREATININE 0.9 mg/dL (0.6-1.3); GLUCOSE 153 mg/dL (70-105); HEMATOCRIT. 42.9 % (42.0-52.0); HEMOGLOBIN. 13.4 g/dL (14.0-18.0); LYMPHOCYTES % 8.7 % (20.0-50.0); MEAN CORPUSCULAR HEMOGLOBIN 25.2 pg (28.0-32.0); MEAN CORPUSCULAR HGB CONC 31.3 g/dL (31.0-37.0); MEAN CORPUSCULAR VOLUME 80.5 fL (80.0-94.0); MEAN PLATELET VOLUME 7.6 fl (7.4-10.4); MONOCYTES % 6.8 % (2.0-8.0); NEUTROPHILS % 84.4 % (40.0-76.0); PLATELET 311 x1000/uL (130-400); RED BLOOD CELL COUNT 5.32 mill/uL (4.7-6.1); RED CELL DISTRIBUTION WIDTH 18.8 % (11.6-14.6); UREA NITROGEN BLOOD 21 mg/dL (9-23); WHITE BLOOD COUNT 11.7 x1000/uL (4.5-11.0)
[2024-01-07 08:00] VITALS: BP 158/82; PULSE 64; RESP 20; TEMP 98.1
[2024-01-07 12:00] VITALS: BP 120/70; PULSE 74; RESP 20; TEMP 97.9
[2024-01-07 16:00] VITALS: BP 114/78; PULSE 66; RESP 20; TEMP 97.9
[2024-01-07 20:00] VITALS: BP 116/67; PULSE 60; RESP 20; TEMP 97.2
[2024-01-07] MEDS: METHYLPREDNISOLONE SOD SUCC 40MG/ML (ACT-O-VIAL) IV SCH (21:43)
[2024-01-07] MEDS: GUAIFENESIN 600MG ER TABLET PO SCH (21:43)
[2024-01-08] VITALS (7 sets, daily range): BP systolic 111–157; BP diastolic 58–88; PULSE 56–98; RESP 19–25; TEMP 97.2–98.2
[2024-01-08 08:06] LABS: CARBON DIOXIDE 36 mEq/L (21-32); CHLORIDE 98 mEq/L (98-107); POTASSIUM 4.5 mEq/L (3.5-5.1); SODIUM 138 mEq/L (136-145)
[2024-01-08 08:07] LABS: CALCIUM 9.7 mg/dL (8.7-10.4)
[2024-01-08 08:11] LABS: CREATININE 0.9 mg/dL (0.6-1.3); GLUCOSE 102 mg/dL (70-105)
[2024-01-08 08:12] LABS: UREA NITROGEN BLOOD 20 mg/dL (9-23)
[2024-01-08] MEDS: FUROSEMIDE 20MG/2ML VIAL IVP SCH (10:04)
[2024-01-08] MEDS: THROAT LOZENGES-BENZOCAINE/MENTH/CETYLPYRD CL LOZENGES MM PRN (17:21)
[2024-01-09] VITALS: BP 115/65; PULSE 69; RESP 20; TEMP 98.6
[2024-01-09 04:00] VITALS: BP 129/79; PULSE 78; RESP 21; TEMP 98.6
[2024-01-09 07:04] LABS: BASOPHILS % 0.1 % (0.0-2.0); DIFFERENTIAL COMMENT 0; EOSINOPHILS % 0.9 % (0.0-5.0); HEMATOCRIT. 45.9 % (42.0-52.0); HEMOGLOBIN. 14.6 g/dL (14.0-18.0); LYMPHOCYTES % 24.9 % (20.0-50.0); MEAN CORPUSCULAR HEMOGLOBIN 25.2 pg (28.0-32.0); MEAN CORPUSCULAR HGB CONC 31.8 g/dL (31.0-37.0); MEAN CORPUSCULAR VOLUME 79.2 fL (80.0-94.0); MEAN PLATELET VOLUME 7.9 fl (7.4-10.4); MONOCYTES % 11.5 % (2.0-8.0); NEUTROPHILS % 62.6 % (40.0-76.0); PLATELET 312 x1000/uL (130-400); RED BLOOD CELL COUNT 5.79 mill/uL (4.7-6.1); RED CELL DISTRIBUTION WIDTH 18.8 % (11.6-14.6); WHITE BLOOD COUNT 10.7 x1000/uL (4.5-11.0)
[2024-01-09 07:19] LABS: CHLORIDE 98 mEq/L (98-107); POTASSIUM 4.2 mEq/L (3.5-5.1); SODIUM 136 mEq/L (136-145)
[2024-01-09 07:20] LABS: CALCIUM 9.5 mg/dL (8.7-10.4); CARBON DIOXIDE 33 mEq/L (21-32)
[2024-01-09 07:26] LABS: GLUCOSE 107 mg/dL (70-105); UREA NITROGEN BLOOD 21 mg/dL (9-23)
[2024-01-09 08:00] VITALS: BP 116/68; PULSE 72; RESP 18; TEMP 97.7
[2024-01-09 16:00] VITALS: BP 133/68; PULSE 79; RESP 18; TEMP 96.1
[2024-01-09 20:00] VITALS: BP 137/66; PULSE 60; RESP 16; TEMP 96
[2024-01-10] VITALS: BP 138/75; PULSE 69; RESP 15; TEMP 98
[2024-01-10 04:00] VITALS: BP 137/92; PULSE 70; RESP 15; TEMP 97
[2024-01-10 08:00] VITALS: BP 125/64; PULSE 104; RESP 18; TEMP 97.8
[2024-01-10 09:13] LABS: HEMATOCRIT. 48.1 % (42.0-52.0); HEMOGLOBIN. 14.7 g/dL (14.0-18.0); MEAN CORPUSCULAR HEMOGLOBIN 24.7 pg (28.0-32.0); MEAN CORPUSCULAR HGB CONC 30.6 g/dL (31.0-37.0); MEAN CORPUSCULAR VOLUME 80.9 fL (80.0-94.0); PLATELET 237 x1000/uL (130-400); RED BLOOD CELL COUNT 5.95 mill/uL (4.7-6.1); WHITE BLOOD COUNT 28.1 x1000/uL (4.5-11.0)
[2024-01-10 09:22] LABS: DIFFERENTIAL COMMENT 1
[2024-01-10 09:25] LABS: CARBON DIOXIDE 27 mEq/L (21-32); CHLORIDE 99 mEq/L (98-107); POTASSIUM 4.8 mEq/L (3.5-5.1); SODIUM 133 mEq/L (136-145)
[2024-01-10 09:26] LABS: CALCIUM 9.7 mg/dL (8.7-10.4)
[2024-01-10 09:31] LABS: CREATININE 0.9 mg/dL (0.6-1.3); GLUCOSE 111 mg/dL (70-105); UREA NITROGEN BLOOD 18 mg/dL (9-23)
[2024-01-10] MEDS: AMLODIPINE 5MG TABLET PO SCH (10:15)
[2024-01-10 12:00] VITALS: BP 125/87; PULSE 80; RESP 18; TEMP 97.5
[2024-01-10 13:59] LABS: ANISOCYTOSIS 2+; HYPOCHROMASIA 1+; PLATELET ESTIMATE NORMAL
[2024-01-10 16:00] VITALS: BP 105/81; PULSE 76; RESP 18; TEMP 97.7
[2024-01-10] MEDS ORDERED: BUDESONIDE 0.5MG/2ML NEB HHN SCH (17:00)
[2024-01-10 20:00] VITALS: BP 119/79; PULSE 73; RESP 19; TEMP 98.4
[2024-01-10] MEDS: IPRATROPIUM/ALBUTEROL 0.5-3(2.5)MG/3ML NEB HHN SCH (20:00)
[2024-01-11] VITALS (11 sets, daily range): BP systolic 107–152; BP diastolic 62–88; PULSE 69–91; RESP 18–20; TEMP 97.4–99.1; O2SAT 96–99
[2024-01-11 16:42] LABS: HEMOGLOBIN. 13.8 g/dL (14.0-18.0); MEAN CORPUSCULAR HEMOGLOBIN 25.4 pg (28.0-32.0); MEAN CORPUSCULAR HGB CONC 31.5 g/dL (31.0-37.0); MEAN CORPUSCULAR VOLUME 80.8 fL (80.0-94.0); MEAN PLATELET VOLUME 9.1 fl (7.4-10.4); PLATELET 245 x1000/uL (130-400); RED BLOOD CELL COUNT 5.44 mill/uL (4.7-6.1); RED CELL DISTRIBUTION WIDTH 18.6 % (11.6-14.6); WHITE BLOOD COUNT 12.2 x1000/uL (4.5-11.0)
[2024-01-11 16:43] LABS: CHLORIDE 94 mEq/L (98-107); POTASSIUM 4.1 mEq/L (3.5-5.1); SODIUM 130 mEq/L (136-145)
[2024-01-11 16:44] LABS: CALCIUM 9.5 mg/dL (8.7-10.4); CARBON DIOXIDE 26 mEq/L (21-32); DIFFERENTIAL COMMENT 1
[2024-01-11 16:49] LABS: GLUCOSE 248 mg/dL (70-105); UREA NITROGEN BLOOD 19 mg/dL (9-23)
[2024-01-11 17:01] LABS: ANISOCYTOSIS 1+; PLATELET ESTIMATE NORMAL
[2024-01-12] VITALS (11 sets, daily range): BP systolic 112–157; BP diastolic 60–85; PULSE 52–87; RESP 16–20; TEMP 97.3–99; O2SAT 91–99
[2024-01-12 06:10] LABS: BASOPHILS % 0.1 % (0.0-2.0); DIFFERENTIAL COMMENT 0; HEMATOCRIT. 45.6 % (42.0-52.0); HEMOGLOBIN. 14.6 g/dL (14.0-18.0); LYMPHOCYTES % 7.3 % (20.0-50.0); MEAN CORPUSCULAR HEMOGLOBIN 25.3 pg (28.0-32.0); MEAN CORPUSCULAR HGB CONC 32.1 g/dL (31.0-37.0); MEAN PLATELET VOLUME 8.3 fl (7.4-10.4); MONOCYTES % 7.5 % (2.0-8.0); NEUTROPHILS % 85.1 % (40.0-76.0); PLATELET 248 x1000/uL (130-400); RED BLOOD CELL COUNT 5.77 mill/uL (4.7-6.1); RED CELL DISTRIBUTION WIDTH 19.2 % (11.6-14.6); WHITE BLOOD COUNT 9.1 x1000/uL (4.5-11.0)
[2024-01-12 06:21] LABS: CHLORIDE 96 mEq/L (98-107); POTASSIUM 4.4 mEq/L (3.5-5.1); SODIUM 132 mEq/L (136-145)
[2024-01-12 06:22] LABS: CALCIUM 10.1 mg/dL (8.7-10.4); CARBON DIOXIDE 29 mEq/L (21-32)
[2024-01-12 06:27] LABS: CREATININE 0.9 mg/dL (0.6-1.3); GLUCOSE 190 mg/dL (70-105); UREA NITROGEN BLOOD 15 mg/dL (9-23)
[2024-01-13] VITALS (10 sets, daily range): BP systolic 125–148; BP diastolic 72–91; PULSE 70–90; RESP 14–20; TEMP 97.1–98.1; O2SAT 95
[2024-01-13 06:24] LABS: CHLORIDE 96 mEq/L (98-107); POTASSIUM 4.4 mEq/L (3.5-5.1); SODIUM 135 mEq/L (136-145)
[2024-01-13 06:25] LABS: CARBON DIOXIDE 31 mEq/L (21-32)
[2024-01-13 06:26] LABS: CALCIUM 9.7 mg/dL (8.7-10.4)
[2024-01-13 06:30] LABS: GLUCOSE 217 mg/dL (70-105)
[2024-01-13 06:31] LABS: UREA NITROGEN BLOOD 13 mg/dL (9-23)
[2024-01-13 06:49] LABS: HEMATOCRIT. 45.7 % (42.0-52.0); HEMOGLOBIN. 14.7 g/dL (14.0-18.0); MEAN CORPUSCULAR HEMOGLOBIN 25.4 pg (28.0-32.0); MEAN CORPUSCULAR HGB CONC 32.1 g/dL (31.0-37.0); MEAN CORPUSCULAR VOLUME 79.1 fL (80.0-94.0); MEAN PLATELET VOLUME 8.3 fl (7.4-10.4); PLATELET 267 x1000/uL (130-400); RED BLOOD CELL COUNT 5.78 mill/uL (4.7-6.1); RED CELL DISTRIBUTION WIDTH 18.7 % (11.6-14.6); WHITE BLOOD COUNT 11.2 x1000/uL (4.5-11.0)
[2024-01-13 07:08] LABS: DIFFERENTIAL COMMENT 1
[2024-01-13 16:28] LABS: ANISOCYTOSIS 1+; MICROCYTOSIS 1+; PLATELET ESTIMATE NORMAL
[2024-01-13] MEDS: PREDNISONE 20MG TABLET PO SCH (18:05)
[2024-01-14] VITALS: BP 132/90; PULSE 73; RESP 16; TEMP 97.3
[2024-01-14 04:00] VITALS: BP 134/88; PULSE 77; RESP 18; TEMP 97.6
[2024-01-14 06:01] VITALS: PULSE 84; RESP 16
[2024-01-14 08:00] VITALS: BP 133/64; PULSE 87; RESP 19; TEMP 97.3
[2024-01-14 10:20] VITALS: PULSE 94; RESP 16; O2SAT 96
[2024-01-14 15:22] VITALS: PULSE 90; RESP 16; O2SAT 96
== END 2024-01-14 18:08 | disposition home or self-care (01) | DRG 130 ==
LOC: ER 03:56 → EDBEDREQ 08:04 → EDBEDREQSVC 08:04 → CVICU 09:32 → 8WST 01-06 21:55
PROVIDERS: ADMIT Internal Medicine; ATTEND Internal Medicine
PROC: 5A1955Z Respiratory Ventilation, Greater than 96 Consecutive Hours (ICD-10-PCS; principal; 2023-12-27)
PROC: 0BH17EZ Insertion of Endotracheal Airway into Trachea, Via Natural or Artificial Opening (ICD-10-PCS; 2023-12-27)
PROC: 5A09357 Assistance with Respiratory Ventilation, Less than 24 Consecutive Hours, Continuous Positive Airway Pressure (ICD-10-PCS; 2023-12-27)
PROC: 05H533Z Insertion of Infusion Device into Right Subclavian Vein, Percutaneous Approach (ICD-10-PCS; 2023-12-28)
PROC: B5161ZA Fluoroscopy of Right Subclavian Vein using Low Osmolar Contrast, Guidance (ICD-10-PCS; 2023-12-28)
PROC: 5A09357 Assistance with Respiratory Ventilation, Less than 24 Consecutive Hours, Continuous Positive Airway Pressure (ICD-10-PCS; 2024-01-05)
PROC: 5A09357 Assistance with Respiratory Ventilation, Less than 24 Consecutive Hours, Continuous Positive Airway Pressure (ICD-10-PCS; 2024-01-06)
DX: J45.901 Unspecified asthma with (acute) exacerbation (principal); A41.9 Sepsis, unspecified organism; G93.40 Encephalopathy, unspecified; I50.33 Acute on chronic diastolic (congestive) heart failure; I11.0 Hypertensive heart disease with heart failure; J18.9 Pneumonia, unspecified organism; J80 Acute respiratory distress syndrome; E66.2 Morbid (severe) obesity with alveolar hypoventilation; I34.81 Nonrheumatic mitral (valve) annulus calcification; E11.9 Type 2 diabetes mellitus without complications; Z20.822 Contact with and (suspected) exposure to COVID-19; E78.00 Pure hypercholesterolemia, unspecified; Z79.899 Other long term (current) drug therapy; Z79.84 Long term (current) use of oral hypoglycemic drugs; Z78.1 Physical restraint status
CPT/HCPCS: 36415; 36573; 36600; 71045; 80048; 80053; 80305; 80320; 81003; 82375; 82805; 82962; 83036; 83735; 83880; 84145; 84478; 84484; 85025; 85027; 87070; 87426; 92610; 93005; 93306; 93970; 94003; 94640; 94660; 97116; 97162; 97166; 97530; 99291; A6261; C1725; J0456; J1200; J1650; J1815; J1885; J1940; J2405; J2543; J2704; J2920; J2930; J3010; J3475; J3490; J7030; J7050; J7512; G0480

== ENCOUNTER 2024-01-22 21:56 | Emergency (ER) | payer MEDICAID ==
[~2024-01-22] VITALS: Ht 170.2 cm; Wt 122.0 kg
[~2024-01-22 21:56] MED LIST: ATOR20TA65 MT; FURO40TA5 MT; LOSA50TA41 MT; METF-415 MT; SPIR25TA6 MT
[2024-01-22 22:06] VITALS: O2SAT 96
[2024-01-22 23:03] VITALS: TEMP 99.5
[2024-01-22 23:18] LABS: BASOPHILS % 0.3 % (0.0-2.0); EOSINOPHILS % 2.6 % (0.0-5.0); HEMATOCRIT. 40.2 % (42.0-52.0); HEMOGLOBIN. 12.8 g/dL (14.0-18.0); LYMPHOCYTES % 21.6 % (20.0-50.0); MEAN CORPUSCULAR HEMOGLOBIN 25.7 pg (28.0-32.0); MEAN CORPUSCULAR HGB CONC 31.8 g/dL (31.0-37.0); MEAN CORPUSCULAR VOLUME 80.7 fL (80.0-94.0); MONOCYTES % 5.8 % (2.0-8.0); NEUTROPHILS % 69.7 % (40.0-76.0); PLATELET 177 x1000/uL (130-400); RED BLOOD CELL COUNT 4.98 mill/uL (4.7-6.1); WHITE BLOOD COUNT 7.5 x1000/uL (4.5-11.0)
[2024-01-22 23:31] LABS: CHLORIDE 100 mEq/L (98-107); POTASSIUM 3.2 mEq/L (3.5-5.1); SODIUM 135 mEq/L (136-145)
[2024-01-22 23:32] LABS: CALCIUM 8.8 mg/dL (8.7-10.4); CARBON DIOXIDE 29 mEq/L (21-32)
[2024-01-22 23:37] LABS: CREATININE 0.9 mg/dL (0.6-1.3); GLUCOSE 126 mg/dL (70-105); TROPONIN I HIGH SENSITIVITY 5 ng/L (3.0-53); UREA NITROGEN BLOOD 8 mg/dL (9-23)
[2024-01-22 23:40] LABS: ETHANOL BLOOD < 10 mg/dL (<10)
[2024-01-23 01:54] LABS: TROPONIN I HIGH SENSITIVITY 5 ng/L (3.0-53)
[2024-01-23 04:14] VITALS: BP 111/61; PULSE 88; RESP 18
[2024-01-23] MEDS ORDERED: IOHEXOL-350 100 ML BOTTLE ONE (07:00)
== END 2024-01-23 04:38 | disposition home or self-care (01) ==
LOC: ER 21:56
DX: R06.00 Dyspnea, unspecified (principal); R06.02 Shortness of breath; I11.0 Hypertensive heart disease with heart failure; I50.9 Heart failure, unspecified; E11.9 Type 2 diabetes mellitus without complications; E78.00 Pure hypercholesterolemia, unspecified
CPT/HCPCS: 80048; 80320; 83880; 85025; 85379; 84484 ×2; 36415 ×2; 71045; 93970; 93005; 99285; 71275; Z7610 ×2; Q9967; G0480

== ENCOUNTER 2024-06-05 21:14 | Inpatient (IN) | payer MEDICAID ==
[~2024-06-05] VITALS: Ht 172.7 cm; Wt 179.6 kg
[2024-06-05] MEDS: FUROSEMIDE 40MG/4ML VIAL IVP ONE (22:45)
[2024-06-05 23:22] LABS: CHLORIDE 102 mEq/L (98-107); POTASSIUM 4.5 mEq/L (3.5-5.1); SODIUM 139 mEq/L (136-145)
[2024-06-05 23:23] LABS: CARBON DIOXIDE 34 mEq/L (21-32)
[2024-06-05 23:24] LABS: CALCIUM 9.5 mg/dL (8.7-10.4)
[2024-06-05 23:26] LABS: BASOPHILS % 0.3 % (0.0-2.0); EOSINOPHILS % 3.3 % (0.0-5.0); HEMATOCRIT. 41.4 % (42.0-52.0); HEMOGLOBIN. 12.9 g/dL (14.0-18.0); LYMPHOCYTES % 24.5 % (20.0-50.0); MEAN CORPUSCULAR HEMOGLOBIN 26.6 pg (28.0-32.0); MEAN CORPUSCULAR HGB CONC 31.1 g/dL (31.0-37.0); MEAN CORPUSCULAR VOLUME 85.3 fL (80.0-94.0); MEAN PLATELET VOLUME 7.4 fl (7.4-10.4); MONOCYTES % 9.5 % (2.0-8.0); NEUTROPHILS % 62.4 % (40.0-76.0); PLATELET 277 x1000/uL (130-400); RED BLOOD CELL COUNT 4.85 mill/uL (4.7-6.1); RED CELL DISTRIBUTION WIDTH 18.1 % (11.6-14.6); WHITE BLOOD COUNT 7.7 x1000/uL (4.5-11.0)
[2024-06-05 23:28] LABS: CREATININE 0.9 mg/dL (0.6-1.3); GLUCOSE 113 mg/dL (70-105); UREA NITROGEN BLOOD 11 mg/dL (9-23)
[2024-06-05 23:30] LABS: TROPONIN I HIGH SENSITIVITY 10 ng/L (3.0-53)
[2024-06-05 23:50] VITALS: RESP 20
[2024-06-06] VITALS (18 sets, daily range): BP systolic 119–177; BP diastolic 75–155; PULSE 82–103; RESP 6–28; TEMP 36.44736–37.2252; O2SAT 96–99
[2024-06-06 00:03] LABS: CLARITY URINE CLEAR (CLEAR); COLOR URINE YELLOW (YELLOW); GLUCOSE URINE NEGATIVE (NEGATIVE); KETONES URINE NEGATIVE (NEGATIVE); LEUKOCYTE ESTERASE URINE NEGATIVE (NEGATIVE); NITRITE URINE NEGATIVE (NEGATIVE); OCCULT BLOOD URINE NEGATIVE (NEGATIVE); PH URINE 6.5 (4.5-8.0); PROTEIN URINE NEGATIVE (NEGATIVE); SPECIFIC GRAVITY URINE 1.009 (1.005-1.030); UROBILINOGEN URINE 0.2 E.U./dL (0.2-1.0)
[2024-06-06] MEDS: FUROSEMIDE 40MG/4ML VIAL IVP NR (00:41)
[2024-06-06 01:35] LABS: BG BASE EXCESS 5.4 mmol/L (-2.0-3.0); BG CARBOXYHEMOGLOBIN 0.6 % (0.5-1.5); BG DEOXYHEMOGLOBIN 1.8 % (0.0-5.0); BG FRACTION INSPIRED OXYGEN 50; BG HCO3 ACT 38.5 mmol/L (21.0-28.0); BG METHEMOGLOBIN 0.3 % (0.5-1.5); BG OXYGEN SATURATION 98.2 % (94.0-98.0); BG OXYHEMOGLOBIN 97.3 % (94.0-98.0); BG PCO2 109.9 mmHg (35.0-48.0); BG PH 7.162 (7.350-7.450); BG SAMPLE SITE LEFT RADIAL; BG TOTAL HEMOGLOBIN 14.7 g/dL (13.5-17.5); BG VENT MODE MASK - BIPAP
[2024-06-06] MEDS: HYDRALAZINE 20MG/ML VIAL IV ONE (02:07)
[2024-06-06 04:27] LABS: BG BASE EXCESS 5.5 mmol/L (-2.0-3.0); BG CARBOXYHEMOGLOBIN 0.7 % (0.5-1.5); BG DEOXYHEMOGLOBIN 1.6 % (0.0-5.0); BG FRACTION INSPIRED OXYGEN 50; BG HCO3 ACT 36.8 mmol/L (21.0-28.0); BG METHEMOGLOBIN 0.4 % (0.5-1.5); BG OXYGEN SATURATION 98.4 % (94.0-98.0); BG OXYHEMOGLOBIN 97.3 % (94.0-98.0); BG PCO2 90.2 mmHg (35.0-48.0); BG PH 7.228 (7.350-7.450); BG PO2 129.6 mmHg (83.0-108.0); BG SAMPLE SITE LEFT RADIAL; BG TOTAL HEMOGLOBIN 14.9 g/dL (13.5-17.5); BG TOTAL RESPIRATORY RATE 25 b/min; BG VENT MODE MASK - BIPAP
[2024-06-06] MEDS: CLONIDINE HCL 0.1MG/24HR PATCH TD NR (04:40)
[2024-06-06] MEDS ORDERED: IPRATROPIUM/ALBUTEROL 0.5-3(2.5)MG/3ML NEB HHN PRN (06:30)
[2024-06-06 09:03] LABS: BG BASE EXCESS 8.4 mmol/L (-2.0-3.0); BG CARBOXYHEMOGLOBIN 0.5 % (0.5-1.5); BG DEOXYHEMOGLOBIN 2.8 % (0.0-5.0); BG FRACTION INSPIRED OXYGEN 35; BG HCO3 ACT 36.9 mmol/L (21.0-28.0); BG METHEMOGLOBIN 0.3 % (0.5-1.5); BG OXYGEN SATURATION 97.2 % (94.0-98.0); BG OXYHEMOGLOBIN 96.4 % (94.0-98.0); BG PCO2 68.9 mmHg (35.0-48.0); BG PH 7.347 (7.350-7.450); BG PO2 93.5 mmHg (83.0-108.0); BG SAMPLE SITE LEFT RADIAL; BG TOTAL HEMOGLOBIN 14.7 g/dL (13.5-17.5); BG VENT MODE MASK - BIPAP
[2024-06-06 13:48] LABS: BG BASE EXCESS 6.7 mmol/L (-2.0-3.0); BG CARBOXYHEMOGLOBIN 0.7 % (0.5-1.5); BG DEOXYHEMOGLOBIN 3.5 % (0.0-5.0); BG FRACTION INSPIRED OXYGEN 35; BG HCO3 ACT 36.1 mmol/L (21.0-28.0); BG OXYGEN SATURATION 96.5 % (94.0-98.0); BG OXYHEMOGLOBIN 95.8 % (94.0-98.0); BG PCO2 76.5 mmHg (35.0-48.0); BG PH 7.292 (7.350-7.450); BG PO2 90.3 mmHg (83.0-108.0); BG SAMPLE SITE RIGHT RADIAL; BG TOTAL HEMOGLOBIN 13.8 g/dL (13.5-17.5); BG VENT MODE MASK - BIPAP
[2024-06-06] MEDS: IPRATROPIUM/ALBUTEROL 0.5-3(2.5)MG/3ML NEB HHN SCH (14:22)
[2024-06-06] MEDS: FUROSEMIDE 20MG/2ML VIAL IVP SCH (14:42)
[2024-06-06] MEDS: AMLODIPINE 5MG TABLET PO SCH (14:43)
[2024-06-06] MEDS: LOSARTAN 25 MG TABLET PO SCH (14:45)
[2024-06-06] MEDS: ACETAMINOPHEN 325MG TABLET PO PRN (15:11)
[2024-06-06] MEDS: MONTELUKAST SODIUM 10MG TABLET PO SCH (18:05)
[2024-06-06] MEDS: FAMOTIDINE 20MG TABLET PO SCH (21:38)
[2024-06-07] VITALS (21 sets, daily range): BP systolic 90–154; BP diastolic 40–108; PULSE 71–97; RESP 10–26; TEMP 36.3918–37.00296; O2SAT 89–99
[2024-06-07 10:24] LABS: BG BASE EXCESS 8.1 mmol/L (-2.0-3.0); BG CARBOXYHEMOGLOBIN 0.5 % (0.5-1.5); BG DEOXYHEMOGLOBIN 4.9 % (0.0-5.0); BG FRACTION INSPIRED OXYGEN 36; BG HCO3 ACT 36.6 mmol/L (21.0-28.0); BG METHEMOGLOBIN 0.3 % (0.5-1.5); BG OXYGEN SATURATION 95.1 % (94.0-98.0); BG OXYHEMOGLOBIN 94.3 % (94.0-98.0); BG PCO2 67.8 mmHg (35.0-48.0); BG PO2 79.9 mmHg (83.0-108.0); BG SAMPLE SITE RIGHT RADIAL; BG TOTAL HEMOGLOBIN 15.4 g/dL (13.5-17.5); BG VENT MODE NASAL CANNULA
[2024-06-07] MEDS ORDERED: HYDROCODONE/ACETAMINOPHEN 5/325MG TABLET PO PRN (13:00)
[2024-06-07 13:03] LABS: BASOPHILS % 0.4 % (0.0-2.0); EOSINOPHILS % 2.9 % (0.0-5.0); HEMATOCRIT. 41.9 % (42.0-52.0); HEMOGLOBIN. 13.1 g/dL (14.0-18.0); LYMPHOCYTES % 22.6 % (20.0-50.0); MEAN CORPUSCULAR HEMOGLOBIN 26.3 pg (28.0-32.0); MEAN CORPUSCULAR HGB CONC 31.2 g/dL (31.0-37.0); MEAN CORPUSCULAR VOLUME 84.5 fL (80.0-94.0); MEAN PLATELET VOLUME 7.6 fl (7.4-10.4); MONOCYTES % 9.4 % (2.0-8.0); NEUTROPHILS % 64.7 % (40.0-76.0); PLATELET 271 x1000/uL (130-400); RED BLOOD CELL COUNT 4.97 mill/uL (4.7-6.1); RED CELL DISTRIBUTION WIDTH 18.4 % (11.6-14.6); WHITE BLOOD COUNT 6.3 x1000/uL (4.5-11.0)
[2024-06-07 13:08] LABS: CALCIUM 9.6 mg/dL (8.7-10.4); CARBON DIOXIDE 38 mEq/L (21-32); CHLORIDE 98 mEq/L (98-107); POTASSIUM 3.9 mEq/L (3.5-5.1); SODIUM 138 mEq/L (136-145)
[2024-06-07 13:12] LABS: CREATININE 0.7 mg/dL (0.6-1.3)
[2024-06-07 13:14] LABS: GLUCOSE 92 mg/dL (70-105); UREA NITROGEN BLOOD 9 mg/dL (9-23)
[2024-06-07] MEDS ORDERED: NALOXONE HCL 0.4MG/ML VIAL IV PRN (13:15)
[2024-06-07] MEDS: INFLUENZA VACCINE 05/PF 0.5 ML SYRINGE IM ONE (13:32)
[2024-06-08] VITALS (18 sets, daily range): BP systolic 110–148; BP diastolic 72–95; PULSE 75–100; RESP 12–27; TEMP 36.114–36.55848; O2SAT 76–100
[2024-06-08] MEDS: GUAIFENESIN 600MG ER TABLET PO PRN (13:10)
[2024-06-08 16:43] LABS: BG BASE EXCESS 10.4 mmol/L (-2.0-3.0); BG CARBOXYHEMOGLOBIN 0.7 % (0.5-1.5); BG DEOXYHEMOGLOBIN 10.9 % (0.0-5.0); BG FRACTION INSPIRED OXYGEN 21; BG HCO3 ACT 36.8 mmol/L (21.0-28.0); BG OXYHEMOGLOBIN 88.4 % (94.0-98.0); BG PCO2 56.1 mmHg (35.0-48.0); BG PH 7.435 (7.350-7.450); BG PO2 52.5 mmHg (83.0-108.0); BG TOTAL HEMOGLOBIN 14.4 g/dL (13.5-17.5); BG VENT MODE ROOM AIR
[2024-06-09] VITALS (15 sets, daily range): BP systolic 80–159; BP diastolic 60–94; PULSE 79–112; RESP 12–29; TEMP 36.44736–36.78072; O2SAT 91–100
[2024-06-09] MEDS: LORATADINE 10MG TABLET PO SCH (12:43)
[2024-06-09 18:09] LABS: BG BASE EXCESS 12.4 mmol/L (-2.0-3.0); BG CARBOXYHEMOGLOBIN 0.4 % (0.5-1.5); BG DEOXYHEMOGLOBIN 7.3 % (0.0-5.0); BG FRACTION INSPIRED OXYGEN 40; BG OXYGEN SATURATION 92.7 % (94.0-98.0); BG OXYHEMOGLOBIN 92.3 % (94.0-98.0); BG PH 7.407 (7.350-7.450); BG PO2 64.5 mmHg (83.0-108.0); BG SAMPLE SITE RIGHT RADIAL; BG VENT MODE NASAL CANNULA
[2024-06-10] VITALS (15 sets, daily range): BP systolic 110–150; BP diastolic 65–95; PULSE 69–103; RESP 14–27; TEMP 36.55848–37.2252; O2SAT 89–99
[2024-06-10 11:46] LABS: BG BASE EXCESS 9.5 mmol/L (-2.0-3.0); BG CARBOXYHEMOGLOBIN 0.7 % (0.5-1.5); BG DEOXYHEMOGLOBIN 2.4 % (0.0-5.0); BG FRACTION INSPIRED OXYGEN 35; BG HCO3 ACT 36.8 mmol/L (21.0-28.0); BG OXYGEN SATURATION 97.6 % (94.0-98.0); BG OXYHEMOGLOBIN 96.9 % (94.0-98.0); BG PCO2 61.5 mmHg (35.0-48.0); BG PH 7.395 (7.350-7.450); BG PO2 98.8 mmHg (83.0-108.0); BG SAMPLE SITE RIGHT RADIAL; BG TOTAL HEMOGLOBIN 14.2 g/dL (13.5-17.5); BG VENT MODE MASK - BIPAP
[2024-06-11] VITALS (13 sets, daily range): BP systolic 100–149; BP diastolic 50–90; PULSE 83–102; RESP 12–30; TEMP 36.55848–37.503; O2SAT 95–99
[2024-06-11] MEDS ORDERED: DEXTROSE 50% WATER 50ML SYRINGE IV PRN (09:00)
[2024-06-11] MEDS: BLOOD SUGAR DIAGNOSTIC STRIP TEST SCH (12:30)
[2024-06-11] MEDS: INSULIN LISPRO 100 UNITS/ML SUBCUT SCH (13:00)
[2024-06-11 18:10] LABS: BG BASE EXCESS 10.7 mmol/L (-2.0-3.0); BG CARBOXYHEMOGLOBIN 0.5 % (0.5-1.5); BG FRACTION INSPIRED OXYGEN 28; BG HCO3 ACT 37.2 mmol/L (21.0-28.0); BG METHEMOGLOBIN 0.1 % (0.5-1.5); BG OXYHEMOGLOBIN 95.4 % (94.0-98.0); BG PCO2 57.4 mmHg (35.0-48.0); BG PO2 79.6 mmHg (83.0-108.0); BG SAMPLE SITE LEFT RADIAL; BG TOTAL HEMOGLOBIN 13.5 g/dL (13.5-17.5); BG VENT MODE NASAL CANNULA
[2024-06-12] VITALS (14 sets, daily range): BP systolic 117–158; BP diastolic 71–87; PULSE 77–103; RESP 15–31; TEMP 36.44736–37.00296; O2SAT 94–100
[2024-06-12] MEDS ORDERED: CLOP75TA33 PO (05:36)
[2024-06-13] VITALS (13 sets, daily range): BP systolic 115–160; BP diastolic 51–87; PULSE 78–96; RESP 15–26; TEMP 36.61404–37.28076; O2SAT 93–99
[2024-06-14] VITALS (13 sets, daily range): BP systolic 125–158; BP diastolic 71–94; PULSE 80–104; RESP 14–26; TEMP 36.6696–37.2252; O2SAT 92–100
[2024-06-14] MEDS: DIPHENHYDRAMINE 50MG CAPSULE PO PRN (22:11)
[2024-06-15] VITALS (11 sets, daily range): BP systolic 116–153; BP diastolic 63–108; PULSE 86–103; RESP 14–33; TEMP 36.78072–36.9474; O2SAT 90–99
[2024-06-15 16:35] LABS: BG BASE EXCESS 6.6 mmol/L (-2.0-3.0); BG CARBOXYHEMOGLOBIN 0.8 % (0.5-1.5); BG DEOXYHEMOGLOBIN 9.1 % (0.0-5.0); BG FRACTION INSPIRED OXYGEN 21; BG HCO3 ACT 33.5 mmol/L (21.0-28.0); BG OXYGEN SATURATION 90.8 % (94.0-98.0); BG OXYHEMOGLOBIN 90.1 % (94.0-98.0); BG PCO2 57.8 mmHg (35.0-48.0); BG PH 7.381 (7.350-7.450); BG PO2 62.1 mmHg (83.0-108.0); BG SAMPLE SITE RIGHT RADIAL; BG TOTAL HEMOGLOBIN 13.6 g/dL (13.5-17.5); BG VENT MODE ROOM AIR
== END 2024-06-15 18:41 | disposition home or self-care (01) | DRG 194 ==
LOC: ER 21:14 → 5EST 06-06 01:56 → EDBEDREQSVC 06-06 02:34 → EDBEDREQ 06-06 02:34
PROVIDERS: ADMIT Internal Medicine; ATTEND Internal Medicine
PROC: 5A09457 Assistance with Respiratory Ventilation, 24-96 Consecutive Hours, Continuous Positive Airway Pressure (ICD-10-PCS; principal; 2024-06-06)
PROC: 5A09357 Assistance with Respiratory Ventilation, Less than 24 Consecutive Hours, Continuous Positive Airway Pressure (ICD-10-PCS; 2024-06-07)
PROC: 5A09357 Assistance with Respiratory Ventilation, Less than 24 Consecutive Hours, Continuous Positive Airway Pressure (ICD-10-PCS; 2024-06-08)
PROC: 5A09357 Assistance with Respiratory Ventilation, Less than 24 Consecutive Hours, Continuous Positive Airway Pressure (ICD-10-PCS; 2024-06-09)
PROC: 5A09357 Assistance with Respiratory Ventilation, Less than 24 Consecutive Hours, Continuous Positive Airway Pressure (ICD-10-PCS; 2024-06-10)
PROC: 5A09357 Assistance with Respiratory Ventilation, Less than 24 Consecutive Hours, Continuous Positive Airway Pressure (ICD-10-PCS; 2024-06-11)
PROC: 5A09357 Assistance with Respiratory Ventilation, Less than 24 Consecutive Hours, Continuous Positive Airway Pressure (ICD-10-PCS; 2024-06-12)
PROC: 5A09357 Assistance with Respiratory Ventilation, Less than 24 Consecutive Hours, Continuous Positive Airway Pressure (ICD-10-PCS; 2024-06-14)
PROC: 5A09357 Assistance with Respiratory Ventilation, Less than 24 Consecutive Hours, Continuous Positive Airway Pressure (ICD-10-PCS; 2024-06-15)
DX: I11.0 Hypertensive heart disease with heart failure (principal); J96.21 Acute and chronic respiratory failure with hypoxia; G93.49 Other encephalopathy; E87.29 Other acidosis; E66.2 Morbid (severe) obesity with alveolar hypoventilation; J45.901 Unspecified asthma with (acute) exacerbation; I50.33 Acute on chronic diastolic (congestive) heart failure; Z68.44 Body mass index [BMI] 60.0-69.9, adult; E11.9 Type 2 diabetes mellitus without complications; E78.00 Pure hypercholesterolemia, unspecified; J96.22 Acute and chronic respiratory failure with hypercapnia; Z91.148 Patient's other noncompliance with medication regimen for other reason; Z79.84 Long term (current) use of oral hypoglycemic drugs
CPT/HCPCS: 36415; 36600; 71045; 80048; 81003; 82375; 82805; 82962; 83036; 83880; 84484; 85025; 90686; 93005; 93970; 94640; 94660; 99285; J0360; J1815; J1940; Q0163

== ENCOUNTER 2025-02-10 21:22 | Emergency (ER) | payer MEDICAID, OTHER ==
[~2025-02-10] VITALS: Ht 170.2 cm; Wt 173.0 kg
[~2025-02-10 21:22] MED LIST changes: +CLOP75TA33 PO
[2025-02-10 21:35] VITALS: O2SAT 97
[2025-02-11] MEDS ORDERED: IBUP-2030 MT (02:51)
[2025-02-11] MEDS ORDERED: CYCL10TA21 MT (02:51)
[2025-02-11 03:24] VITALS: BP 132/70; PULSE 87; RESP 20; TEMP 36.8; O2SAT 95
== END 2025-02-11 03:25 | disposition home or self-care (01) ==
LOC: ER 21:22
DX: M54.50 Low back pain, unspecified (principal); R51.9 Headache, unspecified; E11.9 Type 2 diabetes mellitus without complications; I10 Essential (primary) hypertension; Z79.899 Other long term (current) drug therapy; V89.2XXA Person injured in unspecified motor-vehicle accident, traffic, initial encounter; Y93.89 Activity, other specified; Y92.410 Unspecified street and highway as the place of occurrence of the external cause; Y99.8 Other external cause status
CPT/HCPCS: 72131; 99284